=== PATIENT | female | born 1980 | race Caucasian/White ===

== ENCOUNTER 2021-02-15 07:58 | Emergency (ER) | payer OTHER ==
[~2021-02-15] VITALS: Ht 170.2 cm; Wt 127.2 kg
--- NOTE | 2021-02-15 08:11 | PHYS DOC ---
Adult General Chief Complaint Chief Complaint: EARACHE/EAR PAIN HPI HPI Patient is a 40-year-old female presenting for left ear fullness. Reports she has suffered from URI symptoms past 4 days. Woke up this morning with deep left-sided ear pressure. Nothing known makes better or worse. Patient descri bes pain is deep fullness within her ear without any exudate or other concerning findings. She is otherwise healthy with no pertinent medical issues. She is fully vaccinated against COVID-19 Review of Systems Review of Systems Fourteen body systems of review of systems have been reviewed. See HPI for pertinent positives and negative responses, other duron all other systems are negative, non-pertinent or non-contributory Physical Exam Physical Exam Constitutional: Well developed, well nourished, no acute distress, non-toxic appearance. HENT: Normocephalic, atraumatic, bilateral external ears normal, right ear tympanic membrane with fluid present behind with intact cone of light present and no infectious findings, left ear with fluid behind left tympanic membrane with diminished cone of light with injection and erythema along middle ear canal without exudate, oropharynx moist with posterior oropharyngeal nasal drip present, no oral exudates, nose normal. Eyes: PERRLA, EOMI, conjunctiva normal, no discharge. Neck: Normal range of motion, no tenderness, supple, no stridor. Cardiovascular: Heart rate regular per monitor Lungs & Thorax: No respiratory distress or accessory muscle use, bilateral chest rise Abdomen: Abdomen soft, non-tender, bowel sounds present in all quadrants, no guarding or rebound, nonacute abdomen. Skin: Warm, dry, no erythema, no rash. Back: No tenderness, no CVA tenderness. Extremities: No tenderness, no cyanosis, no clubbing, ROM intact, no edema. Neurologic: Alert and oriented X 3, grossly normal motor & sensory function, no focal deficits noted. Psychologic: Affect normal, judgement normal, mood normal. EKG EKG [] Radiology/Procedures Radiology/Procedures [] Heart Score C/O Chest Pain: No Risk Factors: Risk Factors: DM, Current or recent (<one month) smoker, HTN, HLP, family history of CAD, obesity. Risk Scores: Risk Factors: DM, Current or recent (<one month) smoker, HTN, HLP, family history of CAD, obesity. Course & Med Decision Making Course & Med Decision Making ABCs unremarkable Vitals, HPI and physical exam nonconcerning for any emergent or surgical issues Discussed likely suffering from viral syndrome. No indication for antibiotics. Supportive care instructions and close PCP follow-up when safe to do so advised Ami Disclaimer Ami Disclaimer This electronic medical record was generated, in whole or in part, using a voice recognition dictation system. Departure Departure: Impression: Primary Impression: Viral syndrome Disposition: HOME / SELF CARE / HOMELESS Condition: STABLE Referrals: SITA CONRAD DO (PCP) Additional Instructions: As discussed prior to ER departure, your vitals and comprehensive physical examination were nonconcerning for any emergent or surgical issues. You are likely suffering from a viral upper respiratory infection that is causing fluid buildup behind bilateral ears. As discussed, this should respond with supportive care practices that should include daily antihistamine use such as Claritin, Zyrtec, Purvi or other equivalent. You should also use Afrin for upcoming 24 to 48 hours for congestion. You are also educated on the Lucy technique that should be used to both sides of the neck to encourage lymphatic drainage. Despite being vaccinated against COVID-19 you are offered a swab that was deferred today. As such, please continue supportive care practices at home with close outpatient follow-up advised. If any concerning signs or symptoms present prior to outpatient follow-up please do not hesitate to come back for repeat evaluation. It was a pleasure to take care of you and I wish you the best going forward SIERRA SHARP DO Feb 15, 2021 08:11
[2021-02-15 08:35] VITALS: BP 142/77
== END 2021-02-15 08:36 | disposition home or self-care (01) ==
LOC: ER 07:58
DX: B34.9 Viral infection, unspecified (principal); H93.8X2 Other specified disorders of left ear
CPT/HCPCS: 99282